=== PATIENT | male | born 1935 ===

== ENCOUNTER 2017-09-28 09:13 | Outpatient (CLI) | payer OTHER ==
[~2017-09-28] VITALS: Ht 152.4 cm; Wt 98.9 kg
== END 2017-09-28 09:30 | disposition home or self-care (01) ==
LOC: OFIC 805 09:13
DX: H90.3 Sensorineural hearing loss, bilateral (principal); H61.23 Impacted cerumen, bilateral; H93.12 Tinnitus, left ear

== ENCOUNTER 2017-10-05 07:42 | Outpatient (CLI) | payer OTHER ==
[~2017-10-05] VITALS: Ht 152.4 cm; Wt 98.9 kg
== END 2017-10-05 08:00 | disposition home or self-care (01) ==
LOC: OFIC 805 07:42
DX: H90.3 Sensorineural hearing loss, bilateral (principal); H61.23 Impacted cerumen, bilateral; H93.12 Tinnitus, left ear

== ENCOUNTER 2017-12-07 10:47 | Outpatient (CLI) | payer OTHER ==
[~2017-12-07] VITALS: Ht 152.4 cm; Wt 98.9 kg
== END 2017-12-07 11:05 | disposition home or self-care (01) ==
LOC: OFIC 805 10:47
DX: H90.3 Sensorineural hearing loss, bilateral (principal); H61.23 Impacted cerumen, bilateral; H93.12 Tinnitus, left ear

== ENCOUNTER 2018-02-07 08:56 | Outpatient (CLI) | payer OTHER | END 2018-02-07 09:04 | disposition home or self-care (01) | LOC: RAD 501 08:56 | DX: J18.0 Bronchopneumonia, unspecified organism (principal) ==